=== PATIENT | female | born 1975 | race Caucasian/White ===

== ENCOUNTER 2017-07-14 10:02 | Outpatient (CLI) | payer OTHER ==
[~2017-07-14 10:02] MED LIST: MIRALAX510 GM PO
== END 2017-07-14 10:12 | disposition home or self-care (01) ==
LOC: RX STUDY 10:02
DX: K59.09 Other constipation (principal)

== ENCOUNTER 2018-09-29 09:43 | Outpatient (CLI) | payer OTHER | END 2018-09-29 09:46 | disposition home or self-care (01) | LOC: SONOGRAMA 09:43 | DX: E04.2 Nontoxic multinodular goiter (principal) ==